=== PATIENT | male | born 1995 | race Caucasian/White ===

== ENCOUNTER 2024-07-09 09:59 | Emergency (ER) | payer OTHER ==
[~2024-07-09] VITALS: Ht 190.5 cm; Wt 96.9 kg
[~2024-07-09 09:59] MED LIST: KEFLEX500 MG PO
[2024-07-09] MEDS ORDERED: OXYMETAZOLINE HCL 30 ML BTL NAS ONE (10:30)
[2024-07-09] MEDS ORDERED: DIPHTH,PERTUSS(ACELL),TET VAC 0.5 ML SYRINGE IM ONE (10:30)
[2024-07-09] MEDS ORDERED: ONDANSETRON ODT8 MG PO (11:15)
[2024-07-09 11:46] VITALS: BP 142/92
== END 2024-07-09 11:46 | disposition home or self-care (01) ==
LOC: ED 09:59
DX: S02.2XXA Fracture of nasal bones, initial encounter for closed fracture (principal); R04.0 Epistaxis; W22.8XXA Striking against or struck by other objects, initial encounter
CPT/HCPCS: 70450; 90471; 90715; 99284-25